=== PATIENT | male | born 1970 | race Caucasian/White ===

== ENCOUNTER 2018-11-25 13:40 | Emergency (ER) | payer MEDICAID ==
[~2018-11-25] VITALS: Ht 190.5 cm; Wt 123.0 kg
[~2018-11-25 13:40] MED LIST: ALBU8.5H8 IH; NO HOME MEDS
[2018-11-25 14:02] VITALS: BP 155/87
== END 2018-11-25 16:56 | disposition home or self-care (01) ==
LOC: ER 13:41
DX: M79.672 Pain in left foot (principal); M79.671 Pain in right foot; E11.9 Type 2 diabetes mellitus without complications; I10 Essential (primary) hypertension; G89.29 Other chronic pain; Z79.899 Other long term (current) drug therapy
CPT/HCPCS: 99281

== ENCOUNTER 2018-11-29 15:11 | Emergency (ER) | payer MEDICAID ==
[~2018-11-29] VITALS: Ht 190.5 cm; Wt 122.3 kg
[2018-11-29 15:16] VITALS: BP 147/91
[2018-11-29] MEDS ORDERED: SULF1TAB49 PO (19:00)
[2018-11-29] MEDS ORDERED: sulfamethoxazole/trimethoprim DS (800/160mg) tablet PO ONE (19:30)
== END 2018-11-29 19:33 | disposition home or self-care (01) ==
LOC: ER 15:12
DX: L03.115 Cellulitis of right lower limb (principal); I10 Essential (primary) hypertension; E11.9 Type 2 diabetes mellitus without complications; G89.29 Other chronic pain; Z79.899 Other long term (current) drug therapy
CPT/HCPCS: 99283

== ENCOUNTER 2018-12-30 00:53 | Emergency (ER) | payer MEDICAID ==
[~2018-12-30] VITALS: Ht 190.5 cm; Wt 123.5 kg
[2018-12-30 01:02] VITALS: BP 159/87
--- NOTE | 2018-12-30 02:04 | NUR ---
Pt wanted to just take a few supplies home, he didn't want it dressed and then pull his boot on
== END 2018-12-30 02:06 | disposition home or self-care (01) ==
LOC: ER 00:54
DX: L84 Corns and callosities (principal); E11.40 Type 2 diabetes mellitus with diabetic neuropathy, unspecified; R20.2 Paresthesia of skin; I10 Essential (primary) hypertension; F17.200 Nicotine dependence, unspecified, uncomplicated
CPT/HCPCS: 82948; 99282; 99283

== ENCOUNTER 2019-01-25 23:04 | Emergency (ER) | payer MEDICAID ==
[~2019-01-25] VITALS: Ht 190.5 cm; Wt 119.6 kg
[2019-01-25 23:14] VITALS: BP 158/79
[2019-01-25] MEDS ORDERED: ASPI-1265 PO (23:36)
[2019-01-25] MEDS ORDERED: METF500T PO (23:36)
[2019-01-26] MEDS ORDERED: CEPH500C5 PO (01:45)
[2019-01-26] MEDS ORDERED: SULF1TAB49 PO (01:45)
== END 2019-01-26 02:04 | disposition home or self-care (01) ==
LOC: ER 23:05
DX: L03.115 Cellulitis of right lower limb (principal); I10 Essential (primary) hypertension; E11.9 Type 2 diabetes mellitus without complications; G89.29 Other chronic pain; F17.200 Nicotine dependence, unspecified, uncomplicated; Z79.82 Long term (current) use of aspirin; Z79.84 Long term (current) use of oral hypoglycemic drugs; Z79.899 Other long term (current) drug therapy
CPT/HCPCS: 82948; 99283

== ENCOUNTER 2020-10-07 10:10 | Emergency (ER) | payer MEDICAID ==
[~2020-10-07] VITALS: Ht 190.5 cm; Wt 120.5 kg
[~2020-10-07 10:10] MED LIST changes: -ALBU8.5H8 IH; +ASPI-1265 PO; +METF-436 PO; +METF500T PO
[2020-10-07 10:14] VITALS: BP 176/106
[2020-10-07] MEDS ORDERED: HYDR-4383 PO (10:45)
== END 2020-10-07 11:09 | disposition home or self-care (01) ==
LOC: ER 10:10
DX: S52.592A Other fractures of lower end of left radius, initial encounter for closed fracture (principal); I10 Essential (primary) hypertension; E11.9 Type 2 diabetes mellitus without complications; G89.29 Other chronic pain; F17.200 Nicotine dependence, unspecified, uncomplicated; Z79.82 Long term (current) use of aspirin; Z79.899 Other long term (current) drug therapy; W10.1XXA Fall (on)(from) sidewalk curb, initial encounter; Y93.89 Activity, other specified; Y92.89 Other specified places as the place of occurrence of the external cause; Y99.8 Other external cause status
CPT/HCPCS: 29125; 73110; 99283; 99284

== ENCOUNTER 2022-03-05 10:44 | Emergency (ER) | payer MEDICAID, OTHER ==
[~2022-03-05] VITALS: Ht 190.5 cm; Wt 118.2 kg
[~2022-03-05 10:44] MED LIST changes: +HYDR-4383 PO
[2022-03-05 11:06] VITALS: BP 156/92
[2022-03-05] MEDS ORDERED: TAM75C PO (13:55)
== END 2022-03-05 14:04 | disposition home or self-care (01) ==
LOC: ER 10:44
DX: J10.1 Influenza due to other identified influenza virus with other respiratory manifestations (principal); Z20.822 Contact with and (suspected) exposure to COVID-19; I10 Essential (primary) hypertension; E11.9 Type 2 diabetes mellitus without complications; G89.29 Other chronic pain; M54.9 Dorsalgia, unspecified
CPT/HCPCS: 71046; 87502; 87503; 87635; 99284; C9803

== ENCOUNTER 2023-01-10 10:50 | Emergency (ER) | payer MEDICAID ==
[~2023-01-10] VITALS: Ht 190.5 cm; Wt 113.6 kg
--- NOTE | 2023-01-10 11:07 | NUR ---
Patient aware of blood pressure reading. Patient states, "It's always high. I wasn't taking my medication but when I get the medical I can start getting my medication."
[2023-01-10] MEDS ORDERED: sulfamethoxazole/trimethoprim DS (800/160mg) tablet PO ONE (12:05)
[2023-01-10 12:10] VITALS: BP 151/91
[2023-01-10] MEDS ORDERED: PENI-88 PO (12:30)
[2023-01-10] MEDS ORDERED: penicillin V potassium 500mg tablet PO ONE (12:35)
== END 2023-01-10 12:46 | disposition home or self-care (01) ==
LOC: ER 10:51
DX: A46 Erysipelas (principal); I10 Essential (primary) hypertension; E11.9 Type 2 diabetes mellitus without complications; G89.29 Other chronic pain; M54.50 Low back pain, unspecified; F17.200 Nicotine dependence, unspecified, uncomplicated
CPT/HCPCS: 99283

== ENCOUNTER 2024-09-07 14:35 | Emergency (ER) | payer MEDICAID ==
[~2024-09-07] VITALS: Ht 190.5 cm; Wt 119.8 kg
[2024-09-07] MEDS ORDERED: MELO-102 PO (17:15)
[2024-09-07 17:20] VITALS: BP 177/84; PULSE 73; RESP 16; TEMP 98; O2SAT 98
== END 2024-09-07 17:22 | disposition home or self-care (01) ==
LOC: ER 14:35
DX: M79.642 Pain in left hand (principal); M19.90 Unspecified osteoarthritis, unspecified site; I10 Essential (primary) hypertension; E11.9 Type 2 diabetes mellitus without complications; G89.29 Other chronic pain; M54.9 Dorsalgia, unspecified; Z79.84 Long term (current) use of oral hypoglycemic drugs; Z79.82 Long term (current) use of aspirin; Z79.899 Other long term (current) drug therapy
CPT/HCPCS: 73130; 99283